=== PATIENT | female | born 1995 | race African-American/Black ===

== ENCOUNTER 2022-10-19 12:06 | Inpatient (IN) | payer OTHER ==
[2022-10-19] MEDS ORDERED: Promethazine HCl 25 MG/ML VIAL IM PRN ×3 (12:28→19:41)
[2022-10-19] MEDS ORDERED: Butorphanol Tartrate 1 MG/ML VIAL SLOW IVP PRN (12:28)
[2022-10-19] MEDS ORDERED: Acetaminophen 500 MG TAB PO PRN (12:28)
[2022-10-19] MEDS ORDERED: Ondansetron PF 4 MG/2 ML Vial IVP PRN ×3 (12:28→19:41)
[2022-10-19] MEDS ORDERED: Famotidine/PF 20 mg/2ml Vial SLOW IVP PRN (12:28)
[2022-10-19] MEDS ORDERED: Misoprostol 200 MCG TAB PR PRN (12:28)
[2022-10-19] MEDS ORDERED: Tranexamic Acid 1,000 MG in Sodium Chloride 0.9% 250 ML 250 ML IVPB PRN (12:28)
[2022-10-19] MEDS ORDERED: Methylergonovine 0.2 MG/ML VIAL IM PRN (12:28)
[2022-10-19] MEDS ORDERED: Diphenoxylate HCl/Atropine Tablet PO PRN (12:28)
[2022-10-19] MEDS ORDERED: Bicitra 30 ML UDCUP PO PRN (12:28)
[2022-10-19] MEDS ORDERED: Carboprost 250 MCG/ML AMP IM PRN (12:28)
[2022-10-19] MEDS ORDERED: hydrALAZINE 20 MG/ML VIAL SLOW IVP PRN ×2 (12:28→19:41)
[2022-10-19] MEDS ORDERED: CEFAZOLIN 2 GM in Sodium Chloride 0.9% 100 ML IVPB SCH (12:30)
[2022-10-19] MEDS ORDERED: NS w/ Oxytocin 30 units 500 ML IV SCH ×2 (12:30→19:41)
[2022-10-19] MEDS ORDERED: Lactated Ringer's 1,000 ML IV SCH (12:30)
[2022-10-19 14:42] LABS: Hemoglobin 11.9 g/dL (12.0-15.5); Mean Corpuscular HGB CONC 34.6 g/dL (32.0-36.0); Mean Corpuscular Hemoglobin 29.1 pg (27.0-33.0); Mean Corpuscular Volume 84.1 fl (81.6-98.3); Mean Platelet Volume 9.9 fl (7.4-10.4); Platelet Count 288 10x3/uL (150-450); RBC Distribution Width 13.1 % (11.5-14.5); Red Blood Cell (RBC) Count 4.09 10x6/uL (3.90-5.03); White Blood Cell (WBC) Count 8.8 10x3/uL (3.5-10.5)
[2022-10-19] MEDS ORDERED: Sodium Chloride 0.9% 100 ML ONE (14:47)
[2022-10-19] MEDS ORDERED: CEFAZOLIN 2 GM VIAL ONE (14:47)
[2022-10-19] MEDS ORDERED: Famotidine/PF 20 mg/2ml Vial ONE (14:47)
[2022-10-19 14:54] VITALS: BMI 39.3
[2022-10-19] MEDS ORDERED: Tranexamic Acid 1,000 MG/10 ML VIAL IVP PRN (14:59)
[2022-10-19 15:21] LABS: HBSAg Index 0.11 S/CO (0-0.99); Hep B Surf Ag Non-Reactive S/CO (NonReactive)
[2022-10-19 15:22] LABS: Syphilis Antibody Nonreactive (Nonreactive); Syphilis Antibody Index 0.08 S/CO (<1.00 Non-Reactive)
[2022-10-19] MEDS ORDERED: Morphine PF 10 MG/10 ML VIAL ONE (15:47)
[2022-10-19] MEDS ORDERED: Oxytocin 10 UNITS/ML VIAL ONE ×2 (15:47→16:51)
[2022-10-19] MEDS ORDERED: Fentanyl 100 MCG/2 ML VIAL ONE (16:13)
[2022-10-19] MEDS ORDERED: ePHEDrine Sulfate 50 MG/10 ML VIAL ONE (16:15)
[2022-10-19 16:30] LABS: SARS-CoV-2 NAA Rapid Test Not Detected (NotDetected)
[2022-10-19] MEDS ORDERED: Ondansetron PF 4 MG/2 ML Vial ONE (16:52)
[2022-10-19] MEDS ORDERED: Naloxone HCl 0.4 mg/ml Vial IVP PRN ×2 (17:27)
[2022-10-19] MEDS ORDERED: Ketorolac Tromethamine 30 MG/ML VIAL IVP PRN (17:27)
[2022-10-19] MEDS ORDERED: Naloxone HCl 0.4 mg/ml Vial IV PRN (17:27)
[2022-10-19] MEDS ORDERED: HYDROmorphone 2 MG/ML VIAL SLOW IVP PRN (17:27)
[2022-10-19] MEDS ORDERED: Promethazine HCl 25 MG SUPP PR PRN (17:27)
[2022-10-19] MEDS ORDERED: Meperidine HCl/PF 25 MG/ML VIAL SLOW IVP PRN (17:27)
[2022-10-19] MEDS ORDERED: diphenhydrAMINE 50 MG/ML VIAL IVP PRN (17:27)
[2022-10-19] MEDS ORDERED: Ondansetron HCl/PF 4 MG/2 ML Vial IVP PRN (17:27)
[2022-10-19] MEDS ORDERED: Fentanyl 100 MCG/2 ML VIAL SLOW IVP PRN (17:27)
[2022-10-19] MEDS ORDERED: Moisturizing Cream (Eucerin) 113 GM JAR TOP PRN (17:27)
[2022-10-19] MEDS ORDERED: Communication Order-Pharmacy FS SCH (17:30)
[2022-10-19] MEDS ORDERED: Ketorolac Tromethamine 30 MG/ML VIAL IVP SCH (17:30)
[2022-10-19] MEDS ORDERED: Bisacodyl 10 MG SUPP PR PRN (19:41)
[2022-10-19] MEDS ORDERED: Lanolin Ointment 7 GM TUBE TOP PRN (19:41)
[2022-10-19] MEDS ORDERED: diphenhydrAMINE 25 MG CAP PO PRN (19:41)
[2022-10-19] MEDS ORDERED: Simethicone Chewable 80 MG TAB PO PRN (19:41)
[2022-10-19] MEDS ORDERED: Boostrix 0.5 ML (Tdap) VIAL (>/=7 yrs of age) IM ONE (19:41)
[2022-10-19] MEDS: Docusate 100 MG CAP PO SCH (23:09)
[2022-10-19] MEDS: Ferrous Sulfate 325 MG TAB PO SCH (23:09)
[2022-10-19] MEDS: Ketorolac Tromethamine 30 MG/ML VIAL IVP SCH (23:28)
[2022-10-20 04:53] LABS: Hemoglobin 11.8 g/dL (12.0-15.5); Mean Corpuscular HGB CONC 35.2 g/dL (32.0-36.0); Mean Corpuscular Hemoglobin 29.6 pg (27.0-33.0); Mean Corpuscular Volume 84.2 fl (81.6-98.3); Mean Platelet Volume 10.2 fl (7.4-10.4); Platelet Count 223 10x3/uL (150-450); RBC Distribution Width 12.8 % (11.5-14.5); Red Blood Cell (RBC) Count 3.98 10x6/uL (3.90-5.03); White Blood Cell (WBC) Count 10.5 10x3/uL (3.5-10.5)
[2022-10-20] MEDS ORDERED: HYDROcodone/Acetaminophen 5/325 mg Tablet PO PRN (05:30)
[2022-10-20] MEDS: Ketorolac Tromethamine 30 MG/ML VIAL IVP SCH ×3 (05:51→17:43)
[2022-10-20] MEDS: Docusate 100 MG CAP PO SCH ×2 (08:15→20:43)
[2022-10-20] MEDS: Prenatal Vitamin 1 TAB PO SCH (08:15)
[2022-10-20] MEDS: HYDROcodone/Acetaminophen 5/325 mg Tablet PO PRN ×2 (08:15→18:06)
[2022-10-20] MEDS: Ferrous Sulfate 325 MG TAB PO SCH ×2 (09:35→20:42)
[2022-10-20] MEDS: Ibuprofen 800 MG TAB PO SCH (23:59)
[2022-10-21] MEDS: HYDROcodone/Acetaminophen 5/325 mg Tablet PO PRN ×2 (04:35→19:46)
[2022-10-21] MEDS: Ibuprofen 800 MG TAB PO SCH ×3 (08:24→23:57)
[2022-10-21] MEDS: Docusate 100 MG CAP PO SCH ×2 (08:25→21:38)
[2022-10-21] MEDS: Ferrous Sulfate 325 MG TAB PO SCH ×2 (08:26→21:37)
[2022-10-21] MEDS: Prenatal Vitamin 1 TAB PO SCH (08:28)
[2022-10-22 09:26] VITALS: BP 126/87; TEMP 98
[2022-10-22] MEDS: Ibuprofen 800 MG TAB PO SCH (13:04)
[2022-10-22] MEDS: Ferrous Sulfate 325 MG TAB PO SCH (13:04)
[2022-10-22] MEDS: Docusate 100 MG CAP PO SCH (13:04)
[2022-10-22] MEDS: Prenatal Vitamin 1 TAB PO SCH (13:05)
== END 2022-10-22 12:40 | disposition home or self-care (01) | DRG 787 ==
LOC: CSHLD 12:26 → CSHPP 20:01
PROVIDERS: ADMIT Family Medicine; ATTEND Family Medicine
PROC: 10D00Z1 Extraction of Products of Conception, Low, Open Approach (ICD-10-PCS; principal; 2022-10-19)
PROC: 3E0P05Z Introduction of Adhesion Barrier into Female Reproductive, Open Approach (ICD-10-PCS; 2022-10-19)
DX: O34.211 Maternal care for low transverse scar from previous cesarean delivery (principal); O10.02 Pre-existing essential hypertension complicating childbirth; F32.A Depression, unspecified; F41.9 Anxiety disorder, unspecified; Z37.0 Single live birth; Z3A.37 37 weeks gestation of pregnancy; Z20.822 Contact with and (suspected) exposure to COVID-19; O99.344 Other mental disorders complicating childbirth; O77.0 Labor and delivery complicated by meconium in amniotic fluid; Z79.899 Other long term (current) drug therapy
CPT/HCPCS: 36415; 36416; 51702; 85027; 86780; 86850; 86900; 86901; 87340; J1885; J2274; J2405; J2590; J3010; U0002